=== PATIENT | female | born 1995 | race African-American/Black ===

== ENCOUNTER 2025-04-16 23:52 | Inpatient (IN) | payer MEDICAID, OTHER ==
[~2025-04-16] VITALS: Ht 170.2 cm; Wt 84.9 kg
[2025-04-17] MEDS ORDERED: LORazepam 2 MG/ML VIAL ONE (01:09)
[2025-04-17] MEDS: LORazepam 2 MG/ML VIAL IM ONE (01:10)
[2025-04-17 03:23] LABS: COVID AG,FIA SOURCE NASAL SWAB
[2025-04-17 03:45] LABS: SARS-COV2 (COVID) ANTIGEN,FIA Negative (Negative)
[2025-04-17 04:28] LABS: PLATELET COUNT (AUTO) 292 K/uL (150-450); RED BLOOD CELL COUNT(AUTO) 5.39 MIL/uL (4.00-5.20); RED CELL DISTRIBUTION WIDTH 16.3 % (11.5-14.5); WHITE BLOOD COUNT (AUTO) 7.5 K/uL (4.5-11.0)
[2025-04-17 04:37] LABS: CALCIUM, TOTAL 8.8 mg/dL (8.8-10.5); CREATININE 1.15 mg/dL (0.60-1.30); GLOMERULAR FILTR. RATE CALC > 60 mL/min (>60); GLUCOSE,RANDOM 97 mg/dL (70-110); SODIUM SERUM 142 mmol/L (136-145); UREA NITROGEN, BLOOD 16 mg/dL (7-18)
[2025-04-17] MEDS ORDERED: ZOLPIDEM TARTRATE 10 MG TABLET PO PRN (13:00)
[2025-04-17 14:15] VITALS: O2SAT 98
[2025-04-17] MEDS ORDERED: INFLUENZA VIRUS VACCINE TVS (6MO+) 2025-26/PF 45 MCG/0.5 ML SYRINGE IM. ONE (15:45)
[2025-04-17 15:47] VITALS: RESP 16
[2025-04-17 20:36] VITALS: RESP 17
[2025-04-18 08:09] VITALS: BP 110/57; PULSE 77; RESP 16; TEMP 97.2; O2SAT 97
[2025-04-18] MEDS ORDERED: DOCUSATE SODIUM 100 MG CAPSULE PO PRN (10:00)
[2025-04-18] MEDS ORDERED: OMEPRAZOLE 20 MG CAPSULE PO PRN (10:00)
[2025-04-18] MEDS ORDERED: ACETAMINOPHEN 325 MG TABLET PO PRN (10:00)
[2025-04-18] MEDS ORDERED: BACITRACIN 28 GM OINTMENT TP PRN (10:00)
[2025-04-18] MEDS ORDERED: MAGNESIUM HYDROXIDE SUSPENSION 30 ML UDCUP PO PRN (10:00)
[2025-04-18] MEDS ORDERED: ALBUTEROL SULFATE HFA 90 MCG/PUFF 8 GM INHALER IH PRN (10:00)
[2025-04-18] MEDS ORDERED: IBUPROFEN 600 MG TABLET PO PRN (10:00)
[2025-04-18] MEDS ORDERED: PETROLATUM,WHITE 28 GM JELLY TP PRN (10:00)
[2025-04-18] MEDS ORDERED: LOPERAMIDE HCL 2 MG CAPSULE PO PRN (10:00)
[2025-04-18] MEDS ORDERED: ONDANSETRON 4 MG TABLET PO PRN (10:00)
[2025-04-18] MEDS ORDERED: MAG HYDROX/ALUMINUM HYD/SIMETH ES 30 ML SUSPENSION UDCUP PO PRN (10:00)
[2025-04-18] MEDS ORDERED: BENZOCAINE/MENTHOL [CEPACOL] LOZENGE PO PRN (10:00)
[2025-04-18 20:10] VITALS: BP 126/74; PULSE 84; RESP 16; TEMP 97.3; O2SAT 100
[2025-04-19 08:13] VITALS: BP 117/72; PULSE 85; RESP 16; TEMP 98.1; O2SAT 100
== END 2025-04-19 18:15 | disposition home or self-care (01) | DRG 753 ==
LOC: EMS 23:53 → B3A 04-17 14:47
PROVIDERS: ADMIT Psychiatry & Neurology Psychiatry; ATTEND Psychiatry & Neurology Psychiatry
DX: F31.9 Bipolar disorder, unspecified (principal); R45.851 Suicidal ideations; F10.129 Alcohol abuse with intoxication, unspecified; Z20.822 Contact with and (suspected) exposure to COVID-19; F41.9 Anxiety disorder, unspecified; R03.0 Elevated blood-pressure reading, without diagnosis of hypertension; G47.00 Insomnia, unspecified
CPT/HCPCS: 80048; 84703; 85025; 96372; 99291; G0480; J1200; J1630; J2060